=== PATIENT | female | born 1990 | race American Indian/Alaskan Native ===

== ENCOUNTER 2017-09-12 14:35 | Outpatient (CLI) | payer OTHER ==
--- NOTE | 2017-09-12 15:02 | XRay Report ---
Lumbar spine 3 views: History: Back pain. Findings: There appears to be sacralization of the right and left transverse process L5 vertebral body. Normal height of vertebral bodies 2 decrease in height of lumbosacral interspace with probable early degenerative change. No fracture or soft tissue calcification. Impression: Findings as detailed above.
== END 2017-09-12 14:36 | disposition home or self-care (01) ==
LOC: SPVIMAG 14:35
DX: M54.5 Low back pain (principal); Q76.49 Other congenital malformations of spine, not associated with scoliosis
CPT/HCPCS: 72100